=== PATIENT | male | born 1990 | race Caucasian/White ===

== ENCOUNTER 2018-06-02 16:39 | Emergency (ER) | payer OTHER ==
[~2018-06-02] VITALS: Ht 182.9 cm; Wt 141.7 kg
[2018-06-02 17:59] VITALS: BP 163/106
== END 2018-06-02 17:59 | disposition home or self-care (01) ==
LOC: ED 16:39
DX: L03.116 Cellulitis of left lower limb (principal)

== ENCOUNTER 2018-06-12 17:11 | Emergency (ER) | payer OTHER ==
[~2018-06-12] VITALS: Ht 182.9 cm; Wt 147.0 kg
[2018-06-12 17:26] VITALS: Ht 182.9 cm; Wt 147.0 kg
[2018-06-12 17:52] VITALS: BP 165/97
== END 2018-06-12 17:52 | disposition home or self-care (01) ==
LOC: ED 17:11
DX: L03.116 Cellulitis of left lower limb (principal)

== ENCOUNTER 2019-11-11 01:18 | Emergency (ER) | payer OTHER ==
[~2019-11-11] VITALS: Ht 182.9 cm; Wt 144.2 kg
[2019-11-11 01:27] VITALS: Ht 182.9 cm; Wt 144.2 kg
[2019-11-11 01:48] VITALS: BP 160/115
== END 2019-11-11 01:48 | disposition home or self-care (01) ==
LOC: ED 01:18
DX: M10.9 Gout, unspecified (principal)
CPT/HCPCS: J1885